=== PATIENT | male | born 1970 | race Caucasian/White ===

== ENCOUNTER 2017-03-16 16:23 | Emergency (ER) | payer OTHER ==
[~2017-03-16] VITALS: Ht 190.5 cm; Wt 135.2 kg
[~2017-03-16 16:23] MED LIST: BACT800T5 PO; CLIN1CAP5 PO; HYDR-3533 PO; LISI10TA PO; ULTR50TA PO
[2017-03-16 16:24] VITALS: BP 146/82; PULSE 98; RESP 18; TEMP 97.6; O2SAT 95
[2017-03-16] MEDS ORDERED: IBUPROFEN 800 MG TAB PO ONE (18:15)
[2017-03-16] MEDS ORDERED: METHOCARBAMOL 500 MG TAB PO ONE (18:15)
[2017-03-16] MEDS ORDERED: IBUP800T23 PO (18:16)
[2017-03-16] MEDS ORDERED: ROBA500T PO (18:16)
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
== END 2017-03-16 18:31 | disposition home or self-care (01) ==
LOC: NEPK 16:23
DX: S23.9XXA Sprain of unspecified parts of thorax, initial encounter (principal); R51 Headache; V43.52XA Car driver injured in collision with other type car in traffic accident, initial encounter; Y92.414 Local residential or business street as the place of occurrence of the external cause
CPT/HCPCS: 72072; 99283